=== PATIENT | male | born 1960 | race Caucasian/White ===

== ENCOUNTER → 2017-02-25 | Outpatient (CLI) | payer OTHER ==
[~2017-02-25] MED LIST: ASPCH81 PO; ATOR-22 PO; CHOL100010 PO; ESOM20CA PO; SITA100T3 PO
--- NOTE | 2017-02-25 09:32 | DIAGNOSTIC IMAGING REPORT ---
RIGHT WRIST MIN 3 VIEWS ROUTINE CLINICAL HISTORY: Right wrist pain and swelling. COMPARISON: Right hand radiographs July 07, 2016. FINDINGS: No acute fracture is identified. Amorphous calcification along the ulnar styloid is unchanged since exam of July 07, 2016. This may reflect chondrocalcinosis. Mild osteophytosis within several articulations of the right wrist is noted. IMPRESSION: 1. No acute fracture or dislocation of the right wrist. 2. Faint calcification projecting over the TFCC which may reflect chondrocalcinosis. This is unchanged since exam of July 07, 2016. 3. Mild radiocarpal joint arthritis. Electronically signed by: Victor Hugo Luna M.D. 02/25/2017 9:31 AM Dictated Date/Time: 02/25/2017 9:29 AM
--- NOTE | 2017-02-25 09:34 | DIAGNOSTIC IMAGING REPORT ---
RIGHT FOREARM 2 VIEWS ROUTINE CLINICAL HISTORY: PAIN IN R WRIST Right pain. Edema. COMPARISON: None. DISCUSSION: Mild soft tissue tissue edema in the region of the dorsal aspect of the wrist as well as the mid forearm. Small faint ossific fragment dorsal to the distal radius. Is potentially represents a small avulsion. 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 This may also represent a old avulsion versus synovial calcification. Moderate soft tissue edema. Electronically signed by: Louis Melendrez M.D. 02/25/2017 9:32 AM Dictated Date/Time: 02/25/2017 9:31 AM
== END | disposition home or self-care (01) ==
LOC: C.RADBC 08:55
PROVIDERS: ATTEND Family Medicine
DX: M25.531 Pain in right wrist (principal)

== ENCOUNTER → 2017-03-04 | Outpatient (CLI) | payer OTHER ==
[2017-03-04 10:54] LABS: ESTIMATED AVERAGE GLUCOSE 128 mg/dl; HA1C FLAG Normal (Normal)
[2017-03-04 11:03] LABS: ALT/SGPT 24 U/L (12-78); BLOOD UREA NITROGEN 20 mg/dl (7-18); BUN/CREATININE RATIO 20.1 (10-20); CALCIUM 9.1 mg/dl (8.5-10.1); CARBON DIOXIDE 29 mmol/L (21-32); CHLORIDE 106 mmol/L (98-107); CHOLESTEROL 160 mg/dl (0-200); GLUCOSE 110 mg/dl (70-99); POTASSIUM 4.7 mmol/L (3.5-5.1); SODIUM 142 mmol/L (136-145)
[2017-03-04 11:06] LABS: ALB/GLOB RATIO 1.3 (0.9-2); ALKALINE PHOSPHATASE 70 U/L (45-117); AST/SGOT 15 U/L (15-37); HDL CHOLESTEROL 53 mg/dl; LDL CHOLESTEROL CALCULATED 88 mg/dl; TRIGLYCERIDES 95 mg/dl (0-150); VERY LOW DENSITY LIPOPROT CALC 19 mg/dl
== END | disposition home or self-care (01) ==
LOC: C.LAB 09:47
PROVIDERS: ATTEND Family Medicine
DX: E78.2 Mixed hyperlipidemia (principal); R73.01 Impaired fasting glucose

== ENCOUNTER → 2017-06-07 | Outpatient (CLI) | payer OTHER ==
[2017-06-07 10:11] LABS: ESTIMATED AVERAGE GLUCOSE 126 mg/dl; HA1C FLAG Normal (Normal)
[2017-06-07 10:24] LABS: ALB/GLOB RATIO 1.2 (0.9-2); ALKALINE PHOSPHATASE 79 U/L (45-117); ALT/SGPT 40 U/L (12-78); AST/SGOT 26 U/L (15-37); BLOOD UREA NITROGEN 14 mg/dl (7-18); CARBON DIOXIDE 30 mmol/L (21-32); CHLORIDE 106 mmol/L (98-107); CHOLESTEROL 212 mg/dl (0-200); GLUCOSE 119 mg/dl (70-99); HDL CHOLESTEROL 53 mg/dl; LDL CHOLESTEROL CALCULATED 120 mg/dl; POTASSIUM 4.7 mmol/L (3.5-5.1); SODIUM 142 mmol/L (136-145); TRIGLYCERIDES 194 mg/dl (0-150); VERY LOW DENSITY LIPOPROT CALC 39 mg/dl
== END | disposition home or self-care (01) ==
LOC: C.LAB 06:32
PROVIDERS: ATTEND Family Medicine
DX: E78.2 Mixed hyperlipidemia (principal); E11.9 Type 2 diabetes mellitus without complications